=== PATIENT | female | born 1965 | race Caucasian/White ===

== ENCOUNTER 2025-03-31 05:19 | Emergency (ER) | payer BC, SELFPAY ==
[2025-03-31 05:20] VITALS: BMI 16.9
[2025-03-31 05:30] VITALS: BP 119/79; PULSE 91; RESP 18; TEMP 36.6; O2SAT 100
--- NOTE | 2025-03-31 05:40 | EKG_ITS ---
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
[2025-03-31 06:17] LABS: Collection Type, Urine Clean Catch
[2025-03-31 06:31] LABS: Bilirubin,Urine Negative (Negative); Blood,Urine Trace (Negative); Clarity,Urine Clear (Clear/Hazy); Color,Urine Yellow (Lt Yel-Yel); Glucose, Urine Negative (Negative); Ketones,Urine 1+ (Negative); Leukocyte Esterase,Urine Negative (Negative); Nitrite,Urine Negative (Negative); PH,Urine 5.5 (5.0-7.0); Protein,Urine Negative (Neg - Trace); RBC,Urine 1 /hpf (0-3); Specific Gravity,Urine 1.023 (1.001-1.035); Squamous Epithelial Cell,Urine 1 /hpf (0-5); Urobilinogen,Urine Negative mg/dL (0.0-1.0); WBC,Urine 1 /hpf (0-5)
--- NOTE | 2025-03-31 06:36 | PD.EDRME ---
Rapid Medical Screening Exam [facility] Arrival date/time: 03/31/25 05:19 60-year-old female presents to the Emergency Department for complaint of abdominal pain and diarrhea. Chief Complaint: Abdominal Pain Time Seen by Provider: 03/31/25 07:29 Vital signs: Vital Signs Temperature 98 F 03/31/25 05:30 Pulse Rate 91 03/31/25 05:30 Respiratory Rate 18 03/31/25 05:30 Blood Pressure 119/79 03/31/25 05:30 Pulse Oximetry (%) 100 03/31/25 05:30 Oxygen Delivery Method Room Air 03/31/25 05:30
[2025-03-31 06:56] LABS: Amphetamine/Methamp Scrn,U Negative (Negative); Barbiturate Screen,Urine Negative (Negative); Benzodiazepines Screen,Urine Negative (Negative); Benzoylecgonine Screen, Ur Negative (Negative); Fentanyl Screen,Urine Negative (Negative); Opiate Screen,Urine Negative (Negative); THC Screen,Urine Negative (Negative)
--- NOTE | 2025-03-31 07:20 | XR_ITS ---
Examination: CT abdomen with intravenous contrast CT pelvis with intravenous contrast 2-D coronal reconstructions 2-D sagittal reconstructions Date and time of exam:March 31, 2025, 0900 hours INDICATIONS: Left lower abdominal pain and diarrhea beginning 3 days ago. CTDI: vol (mGy) 5 DLP: (mGycm) 219 Technique: Multiple axial sections of the abdomen and pelvis have been obtained. 64 slice high-resolution scanner used. 3 mm axial sections have been obtained, post intravenous injection 60 cc Isovue 370 2-D sagittal, coronal reconstructions obtained. Low dose protocols were performed. One or more of the following dose reduction techniques were used; automated exposure control, adjustment of the mA and/or KV according to patient size, use of iterative reconstruction technique. Findings: No gallstones No pancreatic or adrenal mass Aorta normal size No bowel obstruction No renal or ureteral calculi No diverticulitis No pericecal inflammatory change Atrophic uterus No pelvic mass Bilateral intact Grade 1 spondylolisthesis L5 on S1 with advanced degenerative disc disease L5-S1 IMPRESSION: No renal or ureteral calculi, no hydronephrosis No CT findings of appendicitis bowel obstruction or diverticulitis
[2025-03-31 07:39] LABS: B-Type Natriuretic Peptide 28 pg/mL (0-100)
[2025-03-31 07:40] LABS: Alanine Aminotransferase 24 U/L (10-49); Albumin, Serum 4.5 gm/dL (3.5-5.0); Albumin/Globulin Ratio 2.0 (1.2-2.2); Alkaline Phosphatase 75 U/L (46-116); Anion Gap 11 (7-16); Aspartate Amino Transferase 30 U/L (0-34); BUN/Creatinine Ratio 15 Ratio (12-20); Bilirubin,Total 1.5 mg/dL (0.3-1.2); Blood Urea Nitrogen 15 mg/dL (9-23); Calcium 9.4 mg/dL (8.3-10.6); Calcium (Corrected) 9.4 mg/dL (8.5-10.1); Carbon Dioxide 24.9 mMol/L (20.0-31.0); Chloride 105 mMol/L (98-107); Creatinine (Component) 1.0 mg/dL (0.6-1.3); Estimated Creatinine Clearance 44.8 mL/min (>60); Globulin 2.3 gm/dL (2.3-3.5); Glucose 88 mg/dL (74-106); Lipase 35 U/L (12-53); Magnesium 1.8 mg/dL (1.6-2.6); Osmolality,Calculated 281 (275-295); Potassium 3.7 mMol/L (3.4-5.1); Sodium 141 mMol/L (136-145); Total Protein 6.8 gm/dL (5.7-8.2); eGFR > 60 See Note
[2025-03-31 07:54] LABS: Basophils # (Auto) 0.0 Thou/mm3 (0.0-0.2); Basophils % (Auto) 0 % (0-2.5); Eosinophils # (Auto) 0.1 Thou/mm3 (0.0-0.5); Eosinophils % (Auto) 2 % (0-10); Hematocrit 37.4 % (36.0-46.0); Hemoglobin 13.0 g/dL (12.0-16.0); Immature Granulocytes Auto 0.03 Thou/mm3 (0.00-0.00); Lymphocytes # (Auto) 0.8 Thou/mm3 (1.0-4.8); Lymphocytes % (Auto) 18 % (10-50); Mean Corpuscular HGB Conc 34.8 g/dl (31.0-37.0); Mean Corpuscular Hemoglobin 32.6 pg (25.0-35.0); Mean Corpuscular Volume 94 fL (80-100); Monocytes # (Auto) 0.5 Thou/mm3 (0.0-0.8); Monocytes % (Auto) 11 % (0-12); Neutrophils # (Auto) 3.3 Thou/mm3 (1.8-7.7); Neutrophils % (Auto) 69 % (37-80); Nucleated Red Blood Cell # 0.00 Thou/mm3 (0.00-0.00); Nucleated Red Blood Cell % 0 /100 WBC (0); Platelet Count 178 Thou/mm3 (140-440); RDW Standard Deviation 39.3 fL (36.4-46.3); Red Blood Count 3.99 Miln/mm3 (4.00-5.20); White Blood Count 4.7 Thou/mm3 (3.6-11.0)
--- NOTE | 2025-03-31 07:58 | EDNOTE_ITS ---
ED Abdominal Pain RME/HPI General Chief Complaint: Abdominal Pain Stated complaint: ABD PAIN/ DIARRHEA Time seen by provider: 03/31/25 07:29 Arrival date/time: 03/31/25 05:19 RME / HPI RME / HPI narrative: 03/31/25 05:19 60-year-old female presents to the Emergency Department for complaint of abdominal pain and diarrhea. DR. PEÑA MAIN ED EVALUATION 60 year old female with history of diverticulitis presents to the ED with abdominal pain and fatigue. Three weeks ago, she developed abdominal pain and was diagnosed with diverticulitis, and completed a course of antibiotics. Her symptoms initially improved for approximately one week. However, 4 days ago she developed recurrent abdominal pain associated with nausea, vomiting, and diarrhea. She was evaluated by her PCP at that time, received a pain injection, but was not restarted on antibiotics. Yesterday, her pain became sharp; today, it is described as dull and constant. Primarily located in the left lower quadrant and across lower abdomen. Reports one episode of diarrhea yesterday and denies fever, chills, or urinary symptoms. Patient states she was evaluated by GI approximately one year ago and underwent colonoscopy, which confirmed diverticulitis. She has not followed up with GI since. Related Data Previous Rx's ?Medication ?Instructions ?Recorded dicyclomine 20 mg tablet 20 mg PO .q8h prn abdominal 03/31/25 cramping pain #20 tabs Allergies Allergy/AdvReac Type Severity Reaction Status Date / Time Penicillins Allergy Intermediate Rash Verified 02/27/24 09:49 unknown antibiotics Allergy Intermediate Rash Uncoded 02/27/24 09:49 Review of Systems Review of Systems Systems Reviewed: All systems reviewed, normal except as documented Past Medical History Past Medical History GASTROINTESTINAL: Positive Gastrointestinal Disorders and Diverticulitis OTHER HISTORY: Positive Chicken Pox Family History FAMILY HISTORY: Positive Family Cancer (paternal grandmother - colon CA) Social History SMOKING STATUS: Never smoker ED Exam Narrative Physical exam: GENERAL APPEARANCE: alert and oriented x 4, well-developed, well-nourished, no acute distress HEENT: Normocephalic, atraumatic; EOMI; mucous membranes pink, moist; oropharynx clear NECK: Supple LUNGS: CTABL HEART: Regular rate, regular rhythm ABDOMEN: non distended; normal BS; soft, minimal discomfort to the lower abdomen, no guarding, no rebound; no masses, no organomegaly, no hernia EXTREMITIES: atraumatic; no edema NEUROLOGIC: awake;alert and oriented x4 PSYCHIATRIC: appropriate mood and affect SKIN: warm, dry, normal color; no rashes Course Course Course Narrative: 824: Labs including CBC, CMP, UA, and Lipase were reviewed showing no acute findings, there is only mildly elevated total bilirubin (1.5). At this time pending CT abd/pelvis. 0938: Labs show no white count, no other significant acute abnormalities. CT of abdomen pelvis is non acute and patient has a generally benign exam overall. She has remained stable through ED course. Will provide symptomatic treatment at this time. Patient was given a dose of Bentyl and Toradol. Advised to follow up with GI on an outpatient basis. Quality Measures none Orders Category Date Time Status CT Screening NOW Care 03/31/25 07:20 Active EKG (ED ONLY) *Do not use* NOW Care 03/31/25 05:40 Completed Insert IV NOW Care 03/31/25 07:[address] abdomen pelvis w con Stat Exams 03/31/25 07:20 Completed EKG (ED Only) Stat Exams 03/31/25 05:40 Draft B-Type Natriuretic Peptide Stat Lab 03/31/25 06:25 Completed CBC Stat Lab 03/31/25 06:25 Completed Comprehensive Metabolic Panel Stat Lab 03/31/25 06:25 Completed Drug Screen,Urine Stat Lab 03/31/25 05:43 Completed Lipase Stat Lab 03/31/25 06:25 Completed Magnesium Stat Lab 03/31/25 06:25 Completed Partial Thromboplastin Time Stat Lab 03/31/25 06:25 Completed Prothrombin Time with INR Stat Lab 03/31/25 06:25 Completed Urinalysis Stat Lab 03/31/25 05:43 Completed Dicyclomine [Bentyl] Med 03/31/25 09:36 Discontinued 20 mg PO X1 ONE Ketorolac Inj [Toradol Inj] Med 03/31/25 07:46 Discontinued 30 mg IVP X1 ONE Ondansetron Inj [Zofran Inj] Med 03/31/25 07:46 Discontinued 4 mg IVP X1 ONE Vital Signs Vital signs: Vital Signs Temperature 98 F 03/31/25 05:30 Pulse Rate 91 03/31/25 05:30 Respiratory Rate 18 03/31/25 05:30 Blood Pressure 119/79 03/31/25 05:30 Pulse Oximetry (%) 100 03/31/25 05:30 Oxygen Delivery Method Room Air 03/31/25 05:30 Pulse ox is 100% on room air which is adequate. Abdominal Pain MDM MDM Narrative MDM Narrative:: Nayeli Rubin am scribing for and in the presence of Dr. Peña. Patient coming in for lower abdominal pain with history of diverticulitis in the past. Labs and imaging done today showing no acute significant abnormalities. Does have a generally benign exam and is vitally stable. Is okay for discharge home, advised on outpatient follow-up with GI. Will give prescription for Bentyl for home to be used as needed. Patient data External records reviewed:: [facility] previous records (I reviewed H&P on 02/27/2024) Clinical information provided by:: patient Social determinants that could affect healthcare access:: none Patient has the following chronic illnesses:: Hx of diverticulitis How is presenting disease/condition affected by chronic disease/condition?: exacerbated by Evaluation data The following diagnostics were reviewed and interpreted by me:: lab results, radiology exam(s) and EKG tracing(s) (03/31/2025 @ 06:02 AM. Normal sinus rhythm, rate 88, no STEMI. ) Lab and/or radiology exams considered but not ordered:: None Interpretation Summary: Ordering Physician: Ruiz FREEMAN)Junior NP Date of Service: 03/31/25 Procedure(s): CT abdomen pelvis w con Accession Number(s): [id number] cc: Junior Melchor NP, NP; Marlon Guzman MD; Shailesh Smith MD~ Examination: CT abdomen with intravenous contrast CT pelvis with intravenous contrast 2-D coronal reconstructions 2-D sagittal reconstructions Date and time of exam:March 31, 2025, 0900 hours INDICATIONS: Left lower abdominal pain and diarrhea beginning 3 days ago. CTDI: vol (mGy) 5 DLP: (mGycm) 219 Technique: Multiple axial sections of the abdomen and pelvis have been obtained. 64 slice high-resolution scanner used. 3 mm axial sections have been obtained, post intravenous injection 60 cc Isovue 370 2-D sagittal, coronal reconstructions obtained. Low dose protocols were performed. One or more of the following dose reduction techniques were used; automated exposure control, adjustment of the mA and/or KV according to patient size, use of iterative reconstruction technique. Findings: No gallstones No pancreatic or adrenal mass Aorta normal size No bowel obstruction No renal or ureteral calculi No diverticulitis No pericecal inflammatory change Atrophic uterus No pelvic mass Bilateral intact Grade 1 spondylolisthesis L5 on S1 with advanced degenerative disc disease L5-S1 IMPRESSION: No renal or ureteral calculi, no hydronephrosis No CT findings of appendicitis bowel obstruction or diverticulitis Dictated By: Marlon Guzman MD Signed By: <Electronically signed by Marlon Guzman MD in OV> 03/31/25 0920 Medications / Prescriptions Medications or Prescriptions considered but not ordered:: None Medication administrations:: Medication Administration History Discontinued Medications Dicyclomine HCl (Dicyclomine 10 Mg Capsule) 20 mg PO X1 ONE Stop: 03/31/25 09:37 Ketorolac Tromethamine (Ketorolac Inj 30 Mg/Ml Vial) 30 mg IVP X1 ONE Stop: 03/31/25 07:47 Last Admin: 03/31/25 08:48 Dose: 30 mg Documented By: ROYAL Ondansetron HCl (Ondansetron Inj 2 Mg/Ml Inj 2 Ml) 4 mg IVP X1 ONE; Protocol Stop: 03/31/25 07:47 Last Admin: 03/31/25 09:03 Dose: Not Given Documented By: ROYAL Non-Admin Reason: Patient Refused See above Consultations Consultation(s) initiated? (list below): No Diagnosis Differential diagnosis abdominal pain: abdominal pain, acute appendicitis, calculus of kidney, constipation and diverticulitis Most likely diagnosis given after review of the tests above:: Left lower quadrant abdominal pain Admission Indicated Admission indicated?: not indicated Admission Request Was there a request for admission?: No Disposition Plan Disposition Plan: Discharge Discharge Attestation Discharge Attestation: The patient and all family members were given an opportunity to ask questions and understood the discharge instructions. Discharge instructions specifically effects, indications for sooner follow up or return to the emergency department, and the expected course of current diagnosis. Patient condition: Stable Discharge Plan Plan Patient Disposition: HOME (Self Care) Patient condition on transfer: Stable Prescriptions/Referrals Prescriptions/Med Rec: New dicyclomine 20 mg tablet 20 mg PO .q8h prn Qty: 20 0RF Referrals: Shailesh Smith MD [Primary Care Provider] - In 1 week Problem List Clinical Impression: Left lower quadrant abdominal pain Patient/Caregiver Discharge Instructions Education Materials: Abdominal Pain Print Language: Tuvaluan Stand Alone Forms: [employer] Info., Patient Portal Info Letter
[2025-03-31 08:01] LABS: INR 1.0 (0.9-1.3); Partial Thromboplastin Time 26.5 Seconds (22.0-36.0); Prothrombin Time 11.4 Seconds (9.0-12.2)
[2025-03-31] MEDS: KETOROLAC INJ 30 MG/ML VIAL IVP (08:48)
[2025-03-31 08:55] VITALS: BP 114/71; PULSE 77; RESP 16; TEMP 36.7; O2SAT 99
[2025-03-31] MEDS: DICYCLOMINE 10 MG CAPSULE 20 MG PO (09:53)
[2025-03-31 10:05] VITALS: BP 112/73; PULSE 77; RESP 18; TEMP 36.8; O2SAT 100
== END 2025-03-31 10:18 | disposition home or self-care (01) ==
PROVIDERS: Emergency Provider Family Medicine; PCP Family Medicine; Referring Provider Emergency Medicine
DX: R10.32 Left lower quadrant pain (principal); Z87.19 Personal history of other diseases of the digestive system; Z88.0 Allergy status to penicillin
CPT/HCPCS: 36415; 74177; 80053; 80307; 81001; 83690; 83735; 83880; 85025; 85610; 85730; 93005; 96374; 99284; A4649; J1885; Q9967; A9270

== ENCOUNTER → 2025-04-05 | Outpatient (CLI) | payer BC, SELFPAY ==
[2025-04-15 06:58] LABS: Calprotectin, Stool* 19 mcg/g
== END | disposition home or self-care (01) ==
LOC: SLDO 16:03
PROVIDERS: Referring Provider Nurse Practitioner Family; Visit Provider Nurse Practitioner Family
DX: K58.0 Irritable bowel syndrome with diarrhea (principal)
CPT/HCPCS: 83993

== ENCOUNTER → 2025-04-11 | Outpatient (CLI) | payer BC, SELFPAY ==
[2025-04-11 07:46] LABS: Collection Type, Urine Clean Catch
[2025-04-11 08:16] LABS: Basophils # (Auto) 0.0 Thou/mm3 (0.0-0.2); Basophils % (Auto) 1 % (0-2.5); Eosinophils # (Auto) 0.1 Thou/mm3 (0.0-0.5); Eosinophils % (Auto) 2 % (0-10); Hematocrit 36.4 % (36.0-46.0); Hemoglobin 12.4 g/dL (12.0-16.0); Immature Granulocytes Auto 0.00 Thou/mm3 (0.00-0.00); Lymphocytes # (Auto) 1.1 Thou/mm3 (1.0-4.8); Lymphocytes % (Auto) 28 % (10-50); Mean Corpuscular HGB Conc 34.1 g/dl (31.0-37.0); Mean Corpuscular Hemoglobin 32.5 pg (25.0-35.0); Mean Corpuscular Volume 96 fL (80-100); Monocytes # (Auto) 0.4 Thou/mm3 (0.0-0.8); Monocytes % (Auto) 9 % (0-12); Neutrophils # (Auto) 2.5 Thou/mm3 (1.8-7.7); Neutrophils % (Auto) 61 % (37-80); Nucleated Red Blood Cell # 0.00 Thou/mm3 (0.00-0.00); Nucleated Red Blood Cell % 0 /100 WBC (0); Platelet Count 199 Thou/mm3 (140-440); RDW Standard Deviation 41.1 fL (36.4-46.3); Red Blood Count 3.81 Miln/mm3 (4.00-5.20); White Blood Count 4.1 Thou/mm3 (3.6-11.0)
[2025-04-11 08:27] LABS: Alanine Aminotransferase 10 U/L (10-49); Albumin, Serum 4.3 gm/dL (3.5-5.0); Albumin/Globulin Ratio 2.0 (1.2-2.2); Alkaline Phosphatase 66 U/L (46-116); Anion Gap 9 (7-16); Aspartate Amino Transferase 18 U/L (0-34); BUN/Creatinine Ratio 18 Ratio (12-20); Bilirubin,Total 0.4 mg/dL (0.3-1.2); Blood Urea Nitrogen 16 mg/dL (9-23); Calcium 10.1 mg/dL (8.3-10.6); Calcium (Corrected) 10.1 mg/dL (8.5-10.1); Carbon Dioxide 27.2 mMol/L (20.0-31.0); Cardiac Risk Estimate 3.7 RATIO (3.7-5.6); Chloride 106 mMol/L (98-107); Cholesterol 146 mg/dL (132-200); Creatinine (Component) 0.9 mg/dL (0.6-1.3); Globulin 2.2 gm/dL (2.3-3.5); Glucose 98 mg/dL (74-106); HDL Cholesterol 40 mg/dL (40-60); LDL Cholesterol,Calculated 90 mg/dL (0-130); Osmolality,Calculated 284 (275-295); Potassium 4.1 mMol/L (3.4-5.1); Sodium 142 mMol/L (136-145); Thyroid Stimulating Hormone 7.36 uIU/mL (0.55-4.78); Total Protein 6.5 gm/dL (5.7-8.2); Triglycerides 79 mg/dL (30-150); eGFR > 60 See Note
[2025-04-11 08:29] LABS: Bilirubin,Urine Negative (Negative); Blood,Urine Negative (Negative); Clarity,Urine Clear (Clear/Hazy); Color,Urine Yellow (Lt Yel-Yel); Culture Indicated,Urine Not Indicated; Glucose, Urine Negative (Negative); Hyaline Casts,Urine < 1 /hpf (0-1); Ketones,Urine Negative (Negative); Leukocyte Esterase,Urine Negative (Negative); Nitrite,Urine Negative (Negative); PH,Urine 5.5 (5.0-7.0); Protein,Urine Negative (Neg - Trace); RBC,Urine < 1 /hpf (0-3); Specific Gravity,Urine 1.023 (1.001-1.035); Squamous Epithelial Cell,Urine < 1 /hpf (0-5); Urobilinogen,Urine Negative mg/dL (0.0-1.0); WBC,Urine 1 /hpf (0-5)
[2025-04-11 08:30] LABS: Vitamin B12 706 pg/mL (211-911); Vitamin D 25 Hydroxy Total 40.4 ng/mL (7.3-40.2)
[2025-04-11 08:32] LABS: Iron 42 mcg/dL (50-170)
== END | disposition home or self-care (01) ==
LOC: COPL 07:11
PROVIDERS: PCP Family Medicine; Referring Provider Nurse Practitioner Family; Visit Provider Nurse Practitioner Family
DX: Z00.00 Encounter for general adult medical examination without abnormal findings (principal)
CPT/HCPCS: 36415; 80053; 80061; 81001; 82306; 82607; 83540; 84443; 85025

== ENCOUNTER → 2025-05-02 | Outpatient (CLI) | payer BC, SELFPAY ==
--- NOTE | 2025-05-02 11:45 | XR_ITS ---
Examination: Screening digital mammography, bilateral Computer aided detection 3-D breast Tomosynthesis, bilateral Date and time of exam: May 02, 2025 1142 hours, compared to mammograms dating to February 24, 2016 Indication: Screening Technique: Nonmagnified MLO, CC views of the breasts to been obtained, reconstructed from 3-D Tomosynthesis images. R2 computer aided detection program utilized for evaluation of suspicious masses and/or abnormal calcifications. 3-D Tomosynthesis images obtained. Findings: The breasts are heterogeneously dense, which may obscure small masses 4 mm nodule upper outer left breast Impression: BI-RADS Category 0: Incomplete: Need additional imaging evaluation Recommend follow-up spot tomographic views 4 mm nodule upper outer left breast as well as bilateral breast sonography to complete the workup.
== END | disposition home or self-care (01) ==
PROVIDERS: PCP Nurse Practitioner Family; Referring Provider Nurse Practitioner Family; Visit Provider Nurse Practitioner Family
DX: Z12.31 Encounter for screening mammogram for malignant neoplasm of breast (principal); N63.21 Unspecified lump in the left breast, upper outer quadrant
CPT/HCPCS: 77063; 77067

== ENCOUNTER → 2025-05-30 | Outpatient (CLI) | payer BC, SELFPAY ==
--- NOTE | 2025-05-30 14:00 | XR_ITS ---
Examination: Breast ultrasound complete, bilateral Date and time of exam: May 30, 2025, 1403 hours INDICATIONS: Mammogram 05/02/2025 4 mm nodule upper outer left breast Technique: Real-time grayscale ultrasonographic imaging bilateral breasts, including all 4 quadrants as well as nipple retroareolar and axillary regions. Findings: Benign cysts 7:00 nodule circumscribed 3 x 3 mm IMPRESSION: BI-RADS Category 2: Benign findings
--- NOTE | 2025-05-30 15:00 | XR_ITS ---
Examination: Diagnostic digital mammography, unilateral, left Computer aided detection 3-D breast Tomosynthesis, unilateral Date and time of exam: May 30, 2025, 1415 hours INDICATIONS: Mammogram 05/02/2025 4 mm nodule upper outer left breast Technique: Nonmagnified MLO, CC views of the left breast have been obtained, reconstructed from 3-D Tomosynthesis images. R2 computer aided detection program utilized for evaluation of suspicious masses and/or abnormal calcifications. 3-D Tomosynthesis images obtained. Findings: The breast is heterogeneously dense, which may obscure small masses No suspicious masses depicted on the spot compression views Impression: BI-RADS category 2: Benign findings Return to yearly follow-up mammography
== END | disposition home or self-care (01) ==
LOC: CDIM 13:42
PROVIDERS: PCP Family Medicine; Referring Provider Nurse Practitioner Family; Visit Provider Nurse Practitioner Family
DX: R92.322 Mammographic fibroglandular density, left breast (principal)
CPT/HCPCS: 76641; 77061; 77065; G0279

== ENCOUNTER → 2025-07-22 | Outpatient (CLI) | payer BC, SELFPAY ==
[2025-07-22 09:13] LABS: Free T4 (Free Thyroxine) 1.03 ng/dL (0.89-1.76); Thyroid Stimulating Hormone 5.32 uIU/mL (0.55-4.78)
[2025-07-26 06:19] LABS: T3,Total* 117 ng/dL (76-181); Thyroid Peroxidase Antibodies* 2 IU/mL (<9)
== END | disposition home or self-care (01) ==
LOC: COPL 07:52
PROVIDERS: PCP Family Medicine; Referring Provider Nurse Practitioner Family; Visit Provider Nurse Practitioner Family
DX: E03.9 Hypothyroidism, unspecified (principal)
CPT/HCPCS: 36415; 84439; 84443; 84480; 86376

== ENCOUNTER → 2025-07-25 | Outpatient (CLI) | payer BC, SELFPAY ==
--- NOTE | 2025-07-25 09:46 | XR_ITS ---
EXAMINATION: C-spine 3 views TECHNIQUE: AP, lateral, coned AP odontoid cervical spine 3 views Date and time: July 25, 2025, 10 0 1:00 a.m. INDICATIONS: Left-sided neck pain beginning 2 months ago. FINDINGS: Prominent osteopenia No cervical fracture Intact odontoid Moderate degenerative disc disease C5-C6 with posterior osteophyte formation IMPRESSION: Moderate degenerative disc disease C5-C6 with posterior osteophyte formation
== END | disposition home or self-care (01) ==
PROVIDERS: Referring Provider Nurse Practitioner Family; Visit Provider Nurse Practitioner Family
DX: M50.322 Other cervical disc degeneration at C5-C6 level (principal); M25.78 Osteophyte, vertebrae
CPT/HCPCS: 72040